=== PATIENT | female | born 1970 | race Caucasian/White ===

== ENCOUNTER 2022-09-23 17:33 | Inpatient (IN) | payer OTHER ==
[2022-09-23 18:54] LABS: BASOPHILS ABSOLUTE AUTO 0.06 K/mm3 (0.00-0.23); BASOPHILS PERCENT AUTO 1 % (0-2); EOSINOPHILS ABSOLUTE AUTO 0.22 K/mm3 (0.00-0.68); EOSINOPHILS PERCENT AUTO 2 % (0-6); Hematocrit 32.9 % (33.0-51.0); Hemoglobin 11.2 g/dL (11.5-16.0); IMMATURE GRAN ABSOLUTE AUTO 0.03 K/mm3 (0.00-0.10); IMMATURE GRAN PERCENT AUTO 0 % (0-1); LYMPHOCYTES ABSOLUTE AUTO 2.45 K/mm3 (0.84-5.20); LYMPHOCYTES PERCENT AUTO 24 % (21-46); MONOCYTES ABSOLUTE AUTO 0.75 K/mm3 (0.16-1.47); MONOCYTES PERCENT AUTO 7 % (4-13); Mean Corpuscular HGB 33.2 pg (26.0-34.0); Mean Corpuscular Volume 98 fL (80-100); Mean Platelet Volume 10.5 fL (9.1-12.4); NEUTROPHILS ABSOLUTE AUTO 6.75 K/mm3 (1.96-9.15); NEUTROPHILS PERCENT AUTO 66 % (41-73); Platelet Count 311 K/mm3 (150-400); RDW Coefficient Variation 14.3 % (11.7-14.2); RDW Standard Deviation 51.6 fL (35.1-46.3); Red Blood Cell Count 3.37 M/mm3 (3.80-5.20); White Blood Cell Count 10.26 K/mm3 (4.00-11.30)
[2022-09-23 19:16] LABS: Magnesium, Blood 2.2 mg/dL (1.6-2.4)
[2022-09-23 19:21] LABS: Albumin, Blood 4.1 g/dL (3.4-5.0); Albumin/Globulin Ratio 0.8 (0.8-1.8); Bilirubin, Total 0.4 mg/dL (0.1-1.0); Bun/Creatinine Ratio 11.9 (12.0-20.0); Calcium, Blood 14.6 mg/dL (8.5-10.1); Creatinine, Blood 3.28 mg/dL (0.40-1.00); Potassium, Blood 3.7 mmol/L (3.5-5.5); Total Protein, Blood 9.1 g/dL (6.4-8.2)
[2022-09-23 20:09] LABS: Source, Urine Straight Cath
[2022-09-23 20:14] LABS: Appearance, Urine Clear (Clear); Bilirubin, Urine Neg (Neg); Blood, Urine 3+ (Neg); Glucose Qualitative, Urine Neg (Neg); Ketones, Urine Neg (Neg); Leukocyte Esterase, Urine Neg (Neg); Nitrite, Urine Neg (Neg); Protein, Urine Neg (Neg); Specific Gravity, Urine 1.015 (1.003-1.022); Urobilinogen, Urine NORM (Normal)
[2022-09-23 20:21] LABS: Color, Urine Pale Yellow (P-Yellow)
[2022-09-23 20:22] LABS: White Blood Cells, Urine 0-2 /hpf (0-5)
[2022-09-23 20:23] LABS: Bacteria Few /hpf; Squamous Epithelial Cells Not Seen /hpf (Few)
--- NOTE | 2022-09-23 23:50 | NUR ---
PT CHART REVIEWED FOR ADMISSION
[2022-09-24 00:25] VITALS: BP 125/75
--- NOTE | 2022-09-24 05:20 | NUR ---
SHIFT SUMMARY 51 YR F ADMITTED THIS SHIFT FOR HYPERCALCEMIA. FULL CODE. NO ACUTE CHANGES THIS SHIFT. PT IS A&O X 4 AND IS ABLE TO AMBULATE INDEPENDANTLY TO THE BATHROOM. NO C/O PAIN OR DISCOMFORT. AND DAUGHTER AT BEDSIDE AT TIME OF ADMISSION. PT STATES SHE HAD THRYROIDECTOMY AND PARATHYROIDECTOMY AT AGE OF 16 AND HAS HAD HEALTH RELATED ISSUES SINCE THEN. SPEECH IS SLURRED X 2 WEEKS. PT IS VERY PLEASANT WITH A POSITIVE ATTITUDE.
[2022-09-24 05:48] VITALS: BP 124/80
[2022-09-24 06:23] LABS: BASOPHILS ABSOLUTE AUTO 0.06 K/mm3 (0.00-0.23); BASOPHILS PERCENT AUTO 1 % (0-2); EOSINOPHILS ABSOLUTE AUTO 0.29 K/mm3 (0.00-0.68); EOSINOPHILS PERCENT AUTO 3 % (0-6); Hematocrit 31.6 % (33.0-51.0); IMMATURE GRAN ABSOLUTE AUTO 0.03 K/mm3 (0.00-0.10); IMMATURE GRAN PERCENT AUTO 0 % (0-1); LYMPHOCYTES ABSOLUTE AUTO 2.12 K/mm3 (0.84-5.20); LYMPHOCYTES PERCENT AUTO 21 % (21-46); MONOCYTES ABSOLUTE AUTO 0.78 K/mm3 (0.16-1.47); MONOCYTES PERCENT AUTO 8 % (4-13); Mean Corpuscular HGB 33.4 pg (26.0-34.0); Mean Corpuscular HGB Conc 34.8 g/dL (31.5-36.5); Mean Corpuscular Volume 96 fL (80-100); Mean Platelet Volume 9.7 fL (9.1-12.4); NEUTROPHILS PERCENT AUTO 67 % (41-73); Platelet Count 294 K/mm3 (150-400); RDW Standard Deviation 49.8 fL (35.1-46.3); Red Blood Cell Count 3.29 M/mm3 (3.80-5.20); White Blood Cell Count 9.98 K/mm3 (4.00-11.30)
[2022-09-24 06:54] LABS: Albumin, Blood 3.5 g/dL (3.4-5.0); Albumin/Globulin Ratio 0.7 (0.8-1.8); Bilirubin, Total 0.3 mg/dL (0.1-1.0); Bun/Creatinine Ratio 12.2 (12.0-20.0); Calcium, Blood 12.2 mg/dL (8.5-10.1); Creatinine, Blood 2.94 mg/dL (0.40-1.00); Globulin, Blood 4.7 g/dL (2.2-4.0); Potassium, Blood 3.4 mmol/L (3.5-5.5); Total Protein, Blood 8.2 g/dL (6.4-8.2)
[2022-09-24 07:01] VITALS: BP 124/73
[2022-09-24 17:27] VITALS: BP 132/71
--- NOTE | 2022-09-24 17:45 | NUR ---
SHIFT SUMMARY VSS. ON RA. TELE REPORT TYPE 2, GABRIELA 2 SEC PER DYNAMIC ETCHING PROCESSOR. PT VOMITING AT TIME. ONLY VOMIT THIS SHIFT, MED PER EMAR. APPETITE POOR. 1 ASSIST TO BATHROOM. SPEACH IMPROVING AT TIMES DURING SHIFT. KARI TATE MED PER EMAR. WILL CONTINUE TO MONITOR, CALL LIGHT IN REACH.
[2022-09-24 19:31] VITALS: BP 108/59
[2022-09-25 02:34] VITALS: BP 115/57
--- NOTE | 2022-09-25 04:17 | NUR ---
SHIFT SUMMARY; NO ACUTE CHANGES OVERNIGHT. THE PT IS AXO X4 AND A STANDBY ASSIST TO THE BATHROOM. THE PT HAS BEEN SLEEPING THE ENTIRETY OF THE NIGHT. THE PT DID REPORT SOME PAIN UNDER HER BREASTS. THE PT BELIEVES THAT THIS PAIN IS FROM THROWING UP EARLIER IN THE DAY. THE PT HAS NOT THROWN UP FOR THE ENTIRETY OF THIS SHIFT. THE PT DENIES ANY CHEST PAIN/PRESSURE OR SOB. CURRENTLY THE PT IS SLEEPING IN BED WITH THE BED IN THE LOWEST POSITION AND THE CALL LIGHT AT BEDSIDE. FIRE SAFETY MAINTAINED T/O THE SHIFT.
[2022-09-25 06:04] LABS: BASOPHILS ABSOLUTE AUTO 0.03 K/mm3 (0.00-0.23); BASOPHILS PERCENT AUTO 0 % (0-2); EOSINOPHILS ABSOLUTE AUTO 0.07 K/mm3 (0.00-0.68); EOSINOPHILS PERCENT AUTO 1 % (0-6); Hematocrit 30.9 % (33.0-51.0); Hemoglobin 10.5 g/dL (11.5-16.0); IMMATURE GRAN ABSOLUTE AUTO 0.04 K/mm3 (0.00-0.10); IMMATURE GRAN PERCENT AUTO 0 % (0-1); LYMPHOCYTES ABSOLUTE AUTO 0.29 K/mm3 (0.84-5.20); LYMPHOCYTES PERCENT AUTO 2 % (21-46); MONOCYTES ABSOLUTE AUTO 0.42 K/mm3 (0.16-1.47); MONOCYTES PERCENT AUTO 4 % (4-13); Mean Corpuscular Volume 97 fL (80-100); Mean Platelet Volume 10.2 fL (9.1-12.4); NEUTROPHILS ABSOLUTE AUTO 11.22 K/mm3 (1.96-9.15); NEUTROPHILS PERCENT AUTO 93 % (41-73); Platelet Count 297 K/mm3 (150-400); RDW Coefficient Variation 14.5 % (11.7-14.2); RDW Standard Deviation 51.9 fL (35.1-46.3); Red Blood Cell Count 3.18 M/mm3 (3.80-5.20); White Blood Cell Count 12.07 K/mm3 (4.00-11.30)
[2022-09-25 06:27] LABS: Albumin, Blood 3.3 g/dL (3.4-5.0); Albumin/Globulin Ratio 0.7 (0.8-1.8); Bilirubin, Total 0.4 mg/dL (0.1-1.0); Bun/Creatinine Ratio 10.4 (12.0-20.0); Calcium, Blood 11.1 mg/dL (8.5-10.1); Creatinine, Blood 3.16 mg/dL (0.40-1.00); Globulin, Blood 4.5 g/dL (2.2-4.0); Potassium, Blood 3.6 mmol/L (3.5-5.5); Total Protein, Blood 7.8 g/dL (6.4-8.2)
[2022-09-25 08:34] VITALS: BP 117/73
[2022-09-25 14:35] VITALS: BP 144/68
--- NOTE | 2022-09-25 19:03 | NUR ---
SHIFT SUMMARY: PT A&O X4. PT PLEASANT AND COOPERATIVE WITH CARE. PT VERY LETHARGIC THIS SHIFT FALLING ASLEEP IN THE MIDDLE OF CONVERSATIONS. DR. LUND REQUESTED THYRIOD MEDICATION HOME DOSAGES. CALLED HOSPITALIST @1840 WITH RESULTS. PT IRRITATED REQUESTING THIS INFORMATION STATING "THIS IS THE 14TH TIME THEY HAVE ASKED ME." PT INDEPENDENT TO BATHROOM. PT STATES SOME DIZZINESS AND SLURRED SPEECH. PT ALSO STATES SHE IS HAVING TREMORS. PT SLIGHTLY IRRITATED THAT [facility] LAB REMAINS ELEVATED. EXPLAINED TO PT RESULT OF ER LAB VS TODAY AND THAT SOME OF THE SYMPTOMS THAT ARE OCCURING ARE DUE TO THE HYPERCALCEMIA. PT HAD NAUSEA/VOMITING THIS SHIFT. ZOFRAN GIVEN TWICE BUT REMAINED UNSUCCESSFUL. PT REFUSED DINNER BUT REQUESTED SNACKS IN HOPING TO TOLERATE. CALL LIGHT IN REACH. BED IN LOWEST POSITION. WILL CONTINUE TO MONITOR.
[2022-09-25 20:41] VITALS: BP 110/76
--- NOTE | 2022-09-26 04:57 | NUR ---
SHIFT SUMMARY 51 YR F ADMITTED ON 09/23/22 FOR HYPERCALCEMIA. FULL CODE. NO ACUTE CHANGES THIS SHIFT. PT HAS HAD NO C/O PAIN OR DISCOMFORT THIS SHIFT. ALSO NO C/O N/V. SHE STATED SHE WAS CRAVING CHEERIOS SO HER WENT OUT AND BOUGHT HER SOME. SHE ATE A BOWL OF THE CEREAL AND TOLERATED IT WELL. PT STATED THAT SHE SLEPT ALL DAY YESTERDAY AND THAT WAS NOT NORMAL FOR HER. SHE ALSO SLEPT FOR MOST OF THIS SHIFT. CURRENTLY AWAITING LAB RESULTS AND IF [facility]UM IS < 10 PT MAY BE ABLE TO DISCHARGE TODAY. SHE AMBULATES INDEPENDANTLY TO THE BATHROOM AND IS PLEASANT AND COOPERATIVE WITH CARE.
[2022-09-26 05:23] LABS: BASOPHILS ABSOLUTE AUTO 0.04 K/mm3 (0.00-0.23); BASOPHILS PERCENT AUTO 0 % (0-2); EOSINOPHILS ABSOLUTE AUTO 0.12 K/mm3 (0.00-0.68); EOSINOPHILS PERCENT AUTO 1 % (0-6); Hematocrit 28.7 % (33.0-51.0); Hemoglobin 9.6 g/dL (11.5-16.0); IMMATURE GRAN ABSOLUTE AUTO 0.04 K/mm3 (0.00-0.10); IMMATURE GRAN PERCENT AUTO 0 % (0-1); LYMPHOCYTES ABSOLUTE AUTO 0.78 K/mm3 (0.84-5.20); LYMPHOCYTES PERCENT AUTO 8 % (21-46); MONOCYTES ABSOLUTE AUTO 0.67 K/mm3 (0.16-1.47); MONOCYTES PERCENT AUTO 7 % (4-13); Mean Corpuscular HGB 33.1 pg (26.0-34.0); Mean Corpuscular HGB Conc 33.4 g/dL (31.5-36.5); Mean Corpuscular Volume 99 fL (80-100); NEUTROPHILS PERCENT AUTO 82 % (41-73); Platelet Count 254 K/mm3 (150-400); RDW Coefficient Variation 14.5 % (11.7-14.2); RDW Standard Deviation 53.2 fL (35.1-46.3); White Blood Cell Count 9.35 K/mm3 (4.00-11.30)
[2022-09-26 05:48] LABS: Albumin, Blood 2.9 g/dL (3.4-5.0); Albumin/Globulin Ratio 0.7 (0.8-1.8); Bilirubin, Total 0.3 mg/dL (0.1-1.0); Bun/Creatinine Ratio 9.4 (12.0-20.0); Calcium, Blood 10.7 mg/dL (8.5-10.1); Creatinine, Blood 3.63 mg/dL (0.40-1.00); Globulin, Blood 4.4 g/dL (2.2-4.0); Potassium, Blood 3.4 mmol/L (3.5-5.5); Total Protein, Blood 7.3 g/dL (6.4-8.2)
[2022-09-26 05:59] VITALS: BP 107/64
[2022-09-26 07:01] VITALS: BP 106/59
[2022-09-26 15:10] VITALS: BP 127/82
--- NOTE | 2022-09-26 16:01 | NUR ---
PT SNORING AND APNIC WITH SLEEP. CALLED DR CALDERON. PT USES CPAP AT SLEEP AT HOME. ORDERS FOR CPAP. CALLED RT FOR SETUP
--- NOTE | 2022-09-26 19:33 | NUR ---
PT PLEASANT TODAY. SLUR CONTINUES. THIS MILAN, THE DAUGHTER STATES IS FROM A RECENT TOOTH INFECTION. STATES THE SLUR GOT WORSE LAST WEEK. MADE THREATS TO GO HOME THIS AM WHEN DR IN ROOM. DISCUSSED THE WORSENING KIDNEY LABS. DISCUSSED IF KIDNEYS SHUT DOWN, COULD END UP ON DIALYSIS. AGREED WOULD STAY AND CONTINUE TO MONITOR AND KEEP IVF GOING. DAUGHTER IN TO VISIT. SHE IS VERY ACTIVE IN HER MEDICAL CARE. MECHANISM INSPECTOR ON BOARD TODAY. NO OTHER CONCERNS NOTED. BED IN LOW POSITION, CALL LITE IN REACH, CALLS APPROP
[2022-09-26 19:46] VITALS: BP 139/83
--- NOTE | 2022-09-26 23:49 | NUR ---
URINE SAMPLE COLLECTED AND SENT TO LAB.
[2022-09-27 00:45] LABS: Creatinine, Urine Random 42.7 mg/dL (27.00-270.00); Microalb/Creat Ratio UR, Rand 100.937 mg/g (0.000-30.000); Microalbumin, Random Urine 43.1 mg/L (0.000-20.000)
[2022-09-27 02:41] LABS: Eosinophils-Raw #,Urine 0
[2022-09-27 02:59] VITALS: BP 123/66
--- NOTE | 2022-09-27 04:15 | NUR ---
SHIFT SUMMARY PATIENT HAD NO ACUTE CHANGES. AXOX 3 WITH SLUR SPEECH. SBA TO BR. URINE SAMPLE COLLECTED AND SENT TO LAB. RT IN TO SETUP HOME CPAP AND USED HOSPITAL MASK. PIV REMAINS INTACT. NS INFUSING AT 150 mL/HR. TELE MONITOR NSR 90. VSS/AFEBRILE. DENIES PAIN, SOB, AND N/V. CALL LIGHT IN REACH. BED IN LOWEST POSITION. WILL CONTINUE TO MONITOR UNTIL DAY SHIFT NURSE ASSUMES CARE.
[2022-09-27 06:09] LABS: BASOPHILS ABSOLUTE AUTO 0.04 K/mm3 (0.00-0.23); BASOPHILS PERCENT AUTO 1 % (0-2); EOSINOPHILS ABSOLUTE AUTO 0.35 K/mm3 (0.00-0.68); EOSINOPHILS PERCENT AUTO 4 % (0-6); Hematocrit 26.7 % (33.0-51.0); IMMATURE GRAN ABSOLUTE AUTO 0.03 K/mm3 (0.00-0.10); IMMATURE GRAN PERCENT AUTO 0 % (0-1); LYMPHOCYTES PERCENT AUTO 16 % (21-46); MONOCYTES ABSOLUTE AUTO 0.74 K/mm3 (0.16-1.47); MONOCYTES PERCENT AUTO 9 % (4-13); Mean Corpuscular HGB Conc 33.7 g/dL (31.5-36.5); Mean Corpuscular Volume 98 fL (80-100); Mean Platelet Volume 10.6 fL (9.1-12.4); NEUTROPHILS ABSOLUTE AUTO 6.16 K/mm3 (1.96-9.15); NEUTROPHILS PERCENT AUTO 71 % (41-73); Platelet Count 239 K/mm3 (150-400); RDW Coefficient Variation 14.5 % (11.7-14.2); RDW Standard Deviation 51.9 fL (35.1-46.3); Red Blood Cell Count 2.73 M/mm3 (3.80-5.20); White Blood Cell Count 8.72 K/mm3 (4.00-11.30)
[2022-09-27 07:00] LABS: Albumin, Blood 2.9 g/dL (3.4-5.0); Albumin/Globulin Ratio 0.7 (0.8-1.8); Bilirubin, Total 0.2 mg/dL (0.1-1.0); Bun/Creatinine Ratio 9.7 (12.0-20.0); Calcium, Blood 10.3 mg/dL (8.5-10.1); Creatinine, Blood 3.41 mg/dL (0.40-1.00); Globulin, Blood 4.2 g/dL (2.2-4.0); Magnesium, Blood 1.3 mg/dL (1.6-2.4); Percent Saturation 20.3 % (15.0-50.0); Phosphorus, Blood 3.4 mg/dL (2.5-4.9); Potassium, Blood 3.4 mmol/L (3.5-5.5); Total Protein, Blood 7.1 g/dL (6.4-8.2); Uric Acid, Blood 6.5 mg/dL (2.6-6.0)
[2022-09-27 07:17] VITALS: BP 129/93
--- NOTE | 2022-09-27 09:00 | NUR ---
0900 JUNIOR SOFTWARE ENGINEER CALLED. STATES AT 0211 PT HAD GABRIELA/PAUSE 3.64 SEC,2ND DEGREE TYPE 2 BLOCK. ALSO 0541 HAD GABRIELA/PAUSE 5.15 SEC, 2ND DEGREE TYPE [address] PRADO AND DR CALDERON IN [facility]. NO NWE ORDERS
[2022-09-27 15:21] VITALS: BP 121/70
--- NOTE | 2022-09-27 18:46 | NUR ---
PT PLEASANT SOME ANX AND TEARFUL TODAY. HAS BEEN TOILETING SELF TODAY. NEW IV PLACED TODAY. IVF RUNNING ORDERED. FAMILY IN TO SEE TODAY. PLAN IS RESTING AND FLUSHING KIDNEYS TODAY. ELECTROLITES REPLACED. NO NEW CONCERNS NOTED. WAS SEEN YESTERDAY BY NEPHROLOGY. BED IN LOW POSITION, CALL LITE IN REACH, CALLS APPROP
[2022-09-27 19:46] VITALS: BP 146/79
--- NOTE | 2022-09-28 04:40 | NUR ---
SHIFT SUMMARY PATIENT HAD NO ACUTE CHANGES. AXOX 4 AND SBA TO BR. PIV REMAINS INTACT. KCL 20 MEQ INFUSING AT 100 mL/HR. IV LASIX GIVEN X ONE. TELE MONITOR NSR 87 WITH NO EVENTS. USES CPAP AT NIGHT WITH RT MONITORING. ON ROOM AIR. DENIES CHEST PAIN, SOB, AND N/V. VSS/AFEBRILE. SPOUSE PRESENT FOR A FEW HOURS. CALL LIGHT IN REACH. BED IN LOWEST POSITION. WILL CONTINUE TO MONITOR UNTIL DAY SHIFT NURSE ASSUMES CARE.
[2022-09-28 05:07] VITALS: BP 107/55
[2022-09-28 05:22] LABS: BASOPHILS ABSOLUTE AUTO 0.05 K/mm3 (0.00-0.23); BASOPHILS PERCENT AUTO 1 % (0-2); EOSINOPHILS ABSOLUTE AUTO 0.45 K/mm3 (0.00-0.68); EOSINOPHILS PERCENT AUTO 5 % (0-6); Hematocrit 26.3 % (33.0-51.0); Hemoglobin 8.9 g/dL (11.5-16.0); IMMATURE GRAN ABSOLUTE AUTO 0.03 K/mm3 (0.00-0.10); IMMATURE GRAN PERCENT AUTO 0 % (0-1); LYMPHOCYTES ABSOLUTE AUTO 1.63 K/mm3 (0.84-5.20); LYMPHOCYTES PERCENT AUTO 17 % (21-46); MONOCYTES ABSOLUTE AUTO 0.65 K/mm3 (0.16-1.47); MONOCYTES PERCENT AUTO 7 % (4-13); Mean Corpuscular HGB 33.3 pg (26.0-34.0); Mean Corpuscular HGB Conc 33.8 g/dL (31.5-36.5); Mean Corpuscular Volume 99 fL (80-100); Mean Platelet Volume 10.1 fL (9.1-12.4); NEUTROPHILS ABSOLUTE AUTO 6.56 K/mm3 (1.96-9.15); NEUTROPHILS PERCENT AUTO 70 % (41-73); Platelet Count 265 K/mm3 (150-400); RDW Coefficient Variation 14.7 % (11.7-14.2); RDW Standard Deviation 53.3 fL (35.1-46.3); Red Blood Cell Count 2.67 M/mm3 (3.80-5.20); White Blood Cell Count 9.37 K/mm3 (4.00-11.30)
[2022-09-28 05:59] LABS: Alanine Aminotransfer (ALT/SGP 61 U/L (12-78); Albumin, Blood 2.9 g/dL (3.4-5.0); Albumin/Globulin Ratio 0.7 (0.8-1.8); Alk Phos 356 U/L (50-136); Anion Gap 3 mmol/L (6-16); Aspartate Aminotrans (AST/SGOT 68 U/L (12-37); Bilirubin, Total 0.2 mg/dL (0.1-1.0); Blood Urea Nitrogen 32 mg/dL (8-24); Bun/Creatinine Ratio 10.8 (12.0-20.0); CO2, Blood 24 mmol/L (21-32); Calcium, Blood 9.8 mg/dL (8.5-10.1); Chloride, Blood 114 mmol/L (98-108); Creatinine, Blood 2.97 mg/dL (0.40-1.00); Globulin, Blood 4.2 g/dL (2.2-4.0); Glomerular Filtration Rate 18 (60-); Glucose, Blood 107 mg/dL (70-99); Phosphorus, Blood 2.8 mg/dL (2.5-4.9); Potassium, Blood 3.8 mmol/L (3.5-5.5); Sodium, Blood 141 mmol/L (136-145); Total Protein, Blood 7.1 g/dL (6.4-8.2)
[2022-09-28 08:13] VITALS: BP 117/71
[2022-09-28 09:09] LABS: COMPLEMENT C3, SERUM 105 mg/dL (82-167); COMPLEMENT C4, SERUM 29 mg/dL (12-38)
[2022-09-28] MEDS ORDERED: MAGNESIUM OXID500 MG PO (13:38)
[2022-09-28] MEDS ORDERED: LEVSOD150 PO (13:38)
--- NOTE | 2022-09-28 14:54 | NUR ---
DISCHARGE REVIEWED WITH PT AND . PT VERBALIZED UNDERSTANDING MEDS AND INSTRUCT. ADVISED TO CALL DRS FOR FOLLOWUP. TELE REMOVED AND RETURNED. IV PULLED INTACT. PT DRESSED SELF. DR TO BRING WORK RELEASE FORM. THEN PT TO GO
--- NOTE | 2022-09-28 15:16 | NUR ---
WHEELED TO DOOR BY JEANNIE, AT 1515
[2022-09-30 13:12] LABS: A/G RATIO 0.9 (0.7-1.7); ALBUMIN 3.1 g/dL (2.9-4.4); ALPHA-1-GLOBULIN 0.3 g/dL (0.0-0.4); ALPHA-2-GLOBULIN 0.9 g/dL (0.4-1.0); BETA GLOBULIN 0.7 g/dL (0.7-1.3); GAMMA GLOBULIN 1.6 g/dL (0.4-1.8); GLOBULIN, TOTAL 3.5 g/dL (2.2-3.9); M-SPIKE Not Observed g/dL (Not Observed); PROTEIN, TOTAL, SERUM 6.6 g/dL (6.0-8.5)
== END 2022-09-28 15:17 | disposition home or self-care (01) | DRG 640 ==
LOC: ER 17:33 → MEDS 23:50
PROVIDERS: Emergency Medicine; Family Medicine; Hospitalist; Student in an Organized Health Care Education/Training Program; ADMIT Internal Medicine
DX: E83.52 Hypercalcemia (principal); N17.0 Acute kidney failure with tubular necrosis; E89.0 Postprocedural hypothyroidism; K04.7 Periapical abscess without sinus; G40.909 Epilepsy, unspecified, not intractable, without status epilepticus; S92.504A Nondisplaced unspecified fracture of right lesser toe(s), initial encounter for closed fracture; E88.09 Other disorders of plasma-protein metabolism, not elsewhere classified; R74.01 Elevation of levels of liver transaminase levels; E83.42 Hypomagnesemia; I44.1 Atrioventricular block, second degree; N18.31 Chronic kidney disease, stage 3a; M20.42 Other hammer toe(s) (acquired), left foot; D50.9 Iron deficiency anemia, unspecified; D63.1 Anemia in chronic kidney disease; Z79.890 Hormone replacement therapy; Z79.899 Other long term (current) drug therapy; Z98.890 Other specified postprocedural states; Z90.49 Acquired absence of other specified parts of digestive tract; Z90.89 Acquired absence of other organs; Z87.891 Personal history of nicotine dependence; Z88.1 Allergy status to other antibiotic agents; Z79.1 Long term (current) use of non-steroidal anti-inflammatories (NSAID); Z79.2 Long term (current) use of antibiotics; Z79.01 Long term (current) use of anticoagulants; Z88.0 Allergy status to penicillin
CPT/HCPCS: 36415; 51701; 70450; 73630; 76770; 80053; 80069; 80400; 81001; 82043; 82533; 82570; 82947; 83540; 83550; 83735; 83970; 84100; 84300; 84439; 84550; 85025; 87205; 93005; 93010; 94660; 94760; 96360-59; 99285-25; A9270; J0630; J0834; J1644; J1940; J2405; J3475; J3480; J3489; J7030

== ENCOUNTER → 2022-09-23 | Outpatient (CLI) | payer OTHER ==
[~2022-09-23] MED LIST: CALC.25 PO; CALCIT950 PO; Calcitriol0.5 MCG PO; LEVSOD125 PO; Vitamin D2000 UNIT PO
[2022-09-23 17:49] LABS: BASOPHILS ABSOLUTE AUTO 0.08 K/mm3 (0.00-0.23); BASOPHILS PERCENT AUTO 1 % (0-2); EOSINOPHILS ABSOLUTE AUTO 0.24 K/mm3 (0.00-0.68); EOSINOPHILS PERCENT AUTO 2 % (0-6); Hematocrit 33.6 % (33.0-51.0); Hemoglobin 11.3 g/dL (11.5-16.0); IMMATURE GRAN ABSOLUTE AUTO 0.03 K/mm3 (0.00-0.10); IMMATURE GRAN PERCENT AUTO 0 % (0-1); LYMPHOCYTES ABSOLUTE AUTO 2.34 K/mm3 (0.84-5.20); LYMPHOCYTES PERCENT AUTO 22 % (21-46); MONOCYTES ABSOLUTE AUTO 0.66 K/mm3 (0.16-1.47); MONOCYTES PERCENT AUTO 6 % (4-13); Mean Corpuscular HGB 33.3 pg (26.0-34.0); Mean Corpuscular HGB Conc 33.6 g/dL (31.5-36.5); Mean Corpuscular Volume 99 fL (80-100); Mean Platelet Volume 10.8 fL (9.1-12.4); NEUTROPHILS ABSOLUTE AUTO 7.34 K/mm3 (1.96-9.15); NEUTROPHILS PERCENT AUTO 69 % (41-73); Platelet Count 328 K/mm3 (150-400); RDW Coefficient Variation 14.3 % (11.7-14.2); RDW Standard Deviation 51.7 fL (35.1-46.3); Red Blood Cell Count 3.39 M/mm3 (3.80-5.20); White Blood Cell Count 10.69 K/mm3 (4.00-11.30)
[2022-09-23 17:53] LABS: International Normalized Ratio 0.99; Prothrombin Time Results 10.4 Sec (9.7-11.5)
[2022-09-23 18:12] LABS: Free Thyroxine 0.19 ng/dL (0.70-1.60)
[2022-09-23 20:08] LABS: Alanine Aminotransfer (ALT/SGP 103 U/L (12-78); Albumin, Blood 4.3 g/dL (3.4-5.0); Albumin/Globulin Ratio 0.9 (0.8-1.8); Alk Phos 454 U/L (50-136); Anion Gap 7 mmol/L (6-16); Aspartate Aminotrans (AST/SGOT 153 U/L (12-37); Bilirubin, Total 0.4 mg/dL (0.1-1.0); Blood Urea Nitrogen 39 mg/dL (8-24); CO2, Blood 31 mmol/L (21-32); Calcium, Blood 14.4 mg/dL (8.5-10.1); Chloride, Blood 99 mmol/L (98-108); Creatinine, Blood 3.26 mg/dL (0.40-1.00); Globulin, Blood 4.8 g/dL (2.2-4.0); Glomerular Filtration Rate 16 (60-); Glucose, Blood 99 mg/dL (70-99); Potassium, Blood 3.8 mmol/L (3.5-5.5); Sodium, Blood 137 mmol/L (136-145); Total Protein, Blood 9.1 g/dL (6.4-8.2); Triiodothyronine, Free <0.50 pg/mL (2.18-3.98)
[2022-09-23 20:10] LABS: Thyroid Stimulating Hormone >500.000 uIU/mL (0.360-4.800)
== END | disposition home or self-care (01) ==
LOC: LAB 15:52 → LAB SHORT 15:52
PROVIDERS: Nurse Practitioner
DX: G81.92 Hemiplegia, unspecified affecting left dominant side (principal); R47.81 Slurred speech
CPT/HCPCS: 80053; 83735; 84439; 84443; 84481; 85025; 85610; 85651; 85730; 86141

== ENCOUNTER → 2024-08-18 | Outpatient (CLI) | payer OTHER ==
[~2024-08-18] MED LIST changes: +LEVSOD150 PO; +MAGNESIUM OXID500 MG PO
== END | disposition home or self-care (01) ==
LOC: LAB SHORT 13:03 → LAB 13:03
PROVIDERS: Obstetrics & Gynecology
DX: Z01.419 Encounter for gynecological examination (general) (routine) without abnormal findings (principal)
CPT/HCPCS: 87624; G0123